=== PATIENT | female | born 1960 | race Caucasian/White ===

== ENCOUNTER 2020-04-09 10:27 | Observation (INO) ==
[2020-04-09 11:15] LABS: INR 0.8; Prothrombin Time 9.4 Seconds (9.4-12.1)
[2020-04-09 11:17] LABS: Activated Partial Thrombo Time 26.8 Seconds (26.0-36.0)
[2020-04-09 11:18] LABS: Basophils # 0.1 K/mcL (0.0-0.2); Basophils % 0.9 %; Eosinophils # 0.5 K/mcL (0.0-0.6); Eosinophils % 6.7 %; Hematocrit 45.4 % (35.3-44.9); Immature Granulocytes % 0.6 % (0-4); Lymphocytes # 2.1 K/mcL (0.6-4.6); Lymphocytes % 30.9 %; Mean Corpuscular Hemoglobin 33.4 pg (28.0-33.3); Mean Corpuscular Volume 101.1 fL (83.0-100.0); Mean Platelet Volume 8.4 fL (9.4-12.4); Monocytes # 0.7 K/mcL (0.0-1.3); Monocytes % 9.9 %; Neutrophils # 3.5 K/mcL (1.6-8.9); Platelet Count 276 K/mcL (140-400); Red Blood Count 4.49 M/mcL (3.82-4.97); Red Cell Distribution Width 12.5 % (11.5-14.5); White Blood Count 6.9 K/mcL (4.3-11.1)
[2020-04-09 11:30] LABS: BUN/Creatinine Ratio 19 (6-26); Blood Urea Nitrogen 15 mg/dL (8-23); Calcium 10.1 mg/dL (8.6-10.3); Carbon Dioxide 26 mEq/L (23-29); Chloride 103 mEq/L (98-107); Glucose 106 mg/dL (70-105); Osmolality,Calculated 285 (280-300); Potassium 4.6 mEq/L (3.5-5.1); Sodium 137 mEq/L (136-145); Troponin I < 0.03 ng/mL (< 0.04); eGFR For African Americans > 60 (> 60); eGFR For Non-African Americans > 60 (> 60)
[2020-04-09] MEDS ORDERED: methylPREDNISolone 125 MG/2 ML VIAL IVP ONE (11:34)
[2020-04-09] MEDS ORDERED: Azithromycin 500 MG in 0.9 % Sodium Chloride 250 ML IVPB ONE (12:15)
[2020-04-09] MEDS ORDERED: Naloxone 0.4 MG/ML INJ IVP PRN (12:27)
[2020-04-09] MEDS ORDERED: Ondansetron 4 MG/2 ML VIAL IVP PRN (12:27)
[2020-04-09] MEDS ORDERED: Ipratropium/Albuterol Neb 3 ML IH PRN (12:29)
[2020-04-09] MEDS: diazePAM 10 MG TABLET PO SCH ×2 (14:17→20:28)
[2020-04-09] MEDS ORDERED: Ipratropium/Albuterol Neb 3 ML IH SCH (16:00)
[2020-04-09] MEDS: carvediloL 25 MG TABLET PO SCH (17:32)
[2020-04-10] MEDS: *HR* Enoxaparin 40 MG/0.4 ML SYRINGE SQ SCH (05:11)
[2020-04-10 06:00] LABS: Basophils % 0.1 %; Hematocrit 43.2 % (35.3-44.9); Hemoglobin 14.3 g/dL (11.5-15.4); Immature Granulocytes % 0.7 % (0-4); Lymphocytes # 0.6 K/mcL (0.6-4.6); Lymphocytes % 5.4 %; Mean Corpuscular HGB Conc 33.1 g/dL (31.6-35.5); Mean Corpuscular Hemoglobin 33.6 pg (28.0-33.3); Mean Corpuscular Volume 101.6 fL (83.0-100.0); Mean Platelet Volume 8.7 fL (9.4-12.4); Monocytes # 0.5 K/mcL (0.0-1.3); Monocytes % 3.8 %; Neutrophils # 10.6 K/mcL (1.6-8.9); Platelet Count 261 K/mcL (140-400); Red Blood Count 4.25 M/mcL (3.82-4.97); Red Cell Distribution Width 12.4 % (11.5-14.5); White Blood Count 11.8 K/mcL (4.3-11.1)
[2020-04-10 06:50] LABS: BUN/Creatinine Ratio 17 (6-26); Blood Urea Nitrogen 15 mg/dL (8-23); Carbon Dioxide 26 mEq/L (23-29); Chloride 100 mEq/L (98-107); Glucose 187 mg/dL (70-105); Magnesium 2.1 mg/dL (1.6-2.6); Osmolality,Calculated 284 (280-300); Potassium 4.1 mEq/L (3.5-5.1); Sodium 134 mEq/L (136-145); eGFR For African Americans > 60 (> 60); eGFR For Non-African Americans > 60 (> 60)
[2020-04-10] MEDS: carvediloL 25 MG TABLET PO SCH ×2 (07:50→18:00)
[2020-04-10] MEDS: DilTIAZem CD (24hr) 120 MG CAP.ER.24H PO SCH (07:51)
[2020-04-10] MEDS: MethylPREDNISolone 40 MG/ML VIAL IVP SCH ×3 (07:51→22:45)
[2020-04-10] MEDS: diazePAM 10 MG TABLET PO SCH ×3 (07:54→21:49)
[2020-04-10] MEDS ORDERED: Azithromycin 500 MG VIAL ONE (07:54)
[2020-04-10] MEDS ORDERED: Azithromycin 500 MG in 0.9 % Sodium Chloride 250 ML IVPB SCH (09:00)
[2020-04-10] MEDS ORDERED: MethylPREDNISolone 40 MG/ML VIAL IVP SCH (09:00)
[2020-04-10] MEDS: Azithromycin 250 MG TABLET PO SCH (11:51)
[2020-04-10] MEDS ORDERED: Acetaminophen 325 MG TABLET PO PRN (12:31)
[2020-04-11] MEDS: *HR* Enoxaparin 40 MG/0.4 ML SYRINGE SQ SCH (05:28)
[2020-04-11 07:13] VITALS: BP 107/71
[2020-04-11] MEDS: diazePAM 10 MG TABLET PO SCH (09:00)
[2020-04-11] MEDS ORDERED: Azithromycin 250 MG TABLET PO SCH (09:00)
[2020-04-11] MEDS: DilTIAZem CD (24hr) 120 MG CAP.ER.24H PO SCH (09:00)
[2020-04-11] MEDS: carvediloL 25 MG TABLET PO SCH (09:00)
[2020-04-11] MEDS: MethylPREDNISolone 40 MG/ML VIAL IVP SCH (09:01)
[2020-04-11] MEDS: Azithromycin 250 MG TABLET PO SCH (09:04)
== END 2020-04-11 13:12 | disposition home or self-care (01) ==
LOC: 2NENU 10:27 → EMEROOARM 10:27 → 2NENU 13:05
PROVIDERS: ADMIT Internal Medicine; ATTEND Internal Medicine